=== PATIENT | male | born 1975 | race Caucasian/White ===

== ENCOUNTER 2017-03-22 19:18 | Emergency (ER) | payer OTHER ==
[2017-03-22] MEDS ORDERED: Nitroglycerin 0.4 MG TAB (25 Tab Bottle) ONE (19:38)
[2017-03-22 20:16] LABS: #Basophils 0.1 thou/uL (0.0-0.2); #Eosinphils 0.1 thou/uL (0.0-0.7); #Lymphocytes 2.5 thou/uL (1.20-3.40); #Neutrophils 6.8 thou/uL (1.40-6.50); %Basophils 0.8 % (0.0-1.0); %Eosinophils 0.9 % (0.0-10.0); %Lymphocytes 23.6 % (21.0-51.0); %Monocytes 9.4 % (0.0-10.0); Hematocrit 50.9 % (42.0-52.0); Red Blood Cell (RBC) Count 5.48 mill/uL (4.70-6.10); White Blood Cell (WBC) Count 10.4 thou/uL (4.8-10.8)
[2017-03-22 20:25] LABS: PTT 25.2 SEC (22.9-36.1); Prothrombin Time 13.5 SEC (12.0-14.7)
[2017-03-22] MEDS ORDERED: Ondansetron ODT 8 MG TAB ONE (20:25)
[2017-03-22 20:40] LABS: ALT (SGPT) 22 U/L (8-55); AST (SGOT) 17 U/L (5-34); Alkaline Phosphatase 75 U/L (40-150); Anion Gap 13 mmol/L (10-20); BUN (Urea Nitrogen) 10 mg/dL (8.9-20.6); Bilirubin, Total 0.4 mg/dL (0.2-1.2); Calc. Creatinine Clearance 0 mL/min (70-130); Calcium 9.6 mg/dL (7.8-10.44); Carbon Dioxide 23 mmol/L (22-29); Chloride 105 mmol/L (98-107); Estimated GFR-MDRD 67; Globulin 3.1 g/dL (2.4-3.5); Lipase 20 U/L (8-78); Protein, Total 7.2 g/dL (6.0-8.3)
[2017-03-22 20:45] LABS: Troponin I Less than 0.010 ng/mL (< 0.028)
--- NOTE | 2017-03-22 22:15 | RAD ---
PA AND LATERAL CHEST: Indication: Nausea with light headedness. Chest pain. Comparison: Single view of the chest, 610. IMPRESSION: No acute cardiopulmonary abnormality. COMMENTS: No airspace consolidation or pleural effusion is evident. There is multilevel spondylosis of the tho racic spine. Heart and pulmonary vasculature are within normal limits. POS: [facility] [place]
[2017-03-22 23:44] LABS: Troponin I 0.022 ng/mL (< 0.028)
--- NOTE | 2017-03-27 18:25 | EKG ---
Test Reason : Blood Pressure : / mmHG Vent. Rate : 091 BPM Atrial Rate : 091 BPM P-R Int : 134 ms QRS Dur : 084 ms QT Int : 336 ms P-R-T Axes : 059 064 060 degrees QTc Int : 413 ms Normal sinus rhythm Normal ECG Confirmed by ESTEPHANIA Guzmán, HEIDE Basilio ([id number]), editor in chief ERIKA SUN ([id number]) on 03/27/2017 6:25:14 PM Referred By: Confirmed By:HEIDE BEST M.D.
--- NOTE | 2017-03-27 18:27 | EKG ---
Test Reason : Blood Pressure : / mmHG Vent. Rate : 076 BPM Atrial Rate : 076 BPM P-R Int : 136 ms QRS Dur : 090 ms QT Int : 374 ms P-R-T Axes : 048 062 068 degrees QTc Int : 420 ms Normal sinus rhythm Normal ECG Confirmed by ESTEPHANIA Guzmán, HEIDE Basilio ([id number]), newspaper or periodical editor ERIKA SUN ([id number]) on 03/27/2017 6:26:45 PM Referred By: Confirmed By:HEIDE BEST M.D.
== END 2017-03-23 00:07 | disposition home or self-care (01) ==
LOC: ERS 19:18
DX: R07.89 Other chest pain (principal); I10 Essential (primary) hypertension; I25.2 Old myocardial infarction; I25.10 Atherosclerotic heart disease of native coronary artery without angina pectoris; F17.210 Nicotine dependence, cigarettes, uncomplicated; Z79.82 Long term (current) use of aspirin; Z79.899 Other long term (current) drug therapy
CPT/HCPCS: 36415; 71020; 80053; 82553; 83690; 83735; 83880; 84484; 85025; 85379; 85610; 85730; 93005; J7620

== ENCOUNTER 2020-03-23 20:42 | Emergency (ER) | payer BC, SELFPAY ==
[2020-03-23 21:36] LABS: #Basophils 0.1 thou/uL (0.0-0.2); #Eosinphils 0.3 thou/uL (0.0-0.7); #Monocytes 1.2 thou/uL (0.11-0.59); %Basophils 0.7 % (0.0-1.0); %Eosinophils 2.9 % (0.0-10.0); %Lymphocytes 42.3 % (21.0-51.0); %Monocytes 12.5 % (0.0-10.0); %Neutrophils 41.5 % (42.0-75.0); Hemoglobin 17.6 g/dL (14.0-18.0); Mean Corpuscular HGB CONC 34.6 g/dL (32.0-36.0); Mean Corpuscular Hemoglobin 31.9 pg (27.0-31.0); Mean Corpuscular Volume 92.2 fL (78.0-98.0); Mean Platelet Volume 7.2 fL (7.4-10.4); Platelet Count 216 thou/uL (130-400); Red Blood Cell (RBC) Count 5.51 mill/uL (4.70-6.10); White Blood Cell (WBC) Count 9.5 thou/uL (4.8-10.8)
--- NOTE | 2020-03-23 21:36 | CT ---
CT OF THE ABDOMEN AND PELVIS WITHOUT IV CONTRAST INDICATION: Right flank pain and back pain COMPARISON: CT the abdomen and pelvis with contrast dated October 26, 2018 FINDINGS: The lack of IV contrast limits evaluation of the solid organs of the abdomen and pelvis. ABDOMEN: Lung bases: Clear Liver: No focal lesion. Gallbladder: Normal appearing. Pancreas: Normal. Adrenal glands: Normal. Spleen: Normal. Kidneys and ureters: Normal. No hydronephrosis. Vasculature: There are mild vascular calcifications seen involving the visualized vasculature. Lymph nodes:No lymphadenopathy. Free fluid in abdomen:No free fluid is evident. PELVIS: Small and large bowel: There is a mild amount retained stool within the colon. The small bowel is nor mal in caliber. Appendix:Normal Bladder: Partially decompressed Rectal and perirectal soft tissues:Normal. Reproductive structures: Normal. Free fluid in pelvis: No free fluid is evident. Lymphadenopathy pelvis: No lymphadenopathy is evident. Osseous structures: No acute osseous abnormality. No destructive osteolytic or osteoblastic lesion i s identified. There is scattered degenerative and osteoarthritic changes. Soft tissues:Normal. IMPRESSION: 1. No acute abnormality.
[2020-03-23] MEDS ORDERED: Ondansetron PF 4 MG/2 ML Vial ONE (21:39)
[2020-03-23] MEDS ORDERED: Morphine 4 MG/ML VIAL ONE (21:39)
[2020-03-23 21:50] LABS: Bilirubin Negative (Negative); Blood, Urine Negative (Negative); Clarity Clear (Clear); Glucose, Urine (Dipstick) Normal (Negative); Ketone, Urine Negative (Negative); Leukocyte Negative Leu/uL (Negative); Nitrite Negative (Negative); Protein, Urine (Dipstick) Negative (Neg-Trace); Specific Gravity, Urine 1.015 (1.002-1.036); Urobilinogen Normal mg/dL (Less than 2); pH, Urine 5.5 (5.0-9.0)
[2020-03-23 21:54] LABS: ALT (SGPT) 30 U/L (8-55); AST (SGOT) 22 U/L (5-34); Albumin 3.9 g/dL (3.5-5.0); Alkaline Phosphatase 73 U/L (40-110); Anion Gap 14 mmol/L (10-20); BUN (Urea Nitrogen) 11 mg/dL (8.9-20.6); Bilirubin, Total 0.2 mg/dL (0.2-1.2); Calc. Creatinine Clearance 0 mL/min (70-130); Calcium 9.3 mg/dL (7.8-10.44); Carbon Dioxide 22 mmol/L (22-29); Chloride 106 mmol/L (98-107); Estimated GFR-MDRD 70; Globulin 3.4 g/dL (2.4-3.5); Glucose 74 mg/dL (70-105); Lipase 32 U/L (8-78); Potassium 4.3 mmol/L (3.5-5.1); Protein, Total 7.3 g/dL (6.0-8.3); Sodium 138 mmol/L (136-145)
[2020-03-23] MEDS ORDERED: Ketorolac Tromethamine 30 MG/ML VIAL ONE (23:05)
== END 2020-03-23 23:12 | disposition home or self-care (01) ==
LOC: ERS 20:42
DX: S39.012A Strain of muscle, fascia and tendon of lower back, initial encounter (principal); I10 Essential (primary) hypertension; E78.00 Pure hypercholesterolemia, unspecified; I25.2 Old myocardial infarction; F17.210 Nicotine dependence, cigarettes, uncomplicated; Z79.899 Other long term (current) drug therapy; Z79.82 Long term (current) use of aspirin; X58.XXXA Exposure to other specified factors, initial encounter
CPT/HCPCS: 74176; 80053; 81003; 83690; 85025; 87086; 96374; 96375; J1885; J2270; J2405

== ENCOUNTER 2020-03-28 17:05 | Observation (INO) | payer SELFPAY ==
[~2020-03-28 17:05] MED LIST: Iopamidol-370 76% 500 ML 1 ML ONE
[2020-03-28 17:29] LABS: #Basophils 0.1 thou/uL (0.0-0.2); #Monocytes 1.1 thou/uL (0.11-0.59); #Neutrophils 13.2 thou/uL (1.40-6.50); %Basophils 0.6 % (0.0-1.0); %Eosinophils 0.1 % (0.0-10.0); %Lymphocytes 11.9 % (21.0-51.0); %Monocytes 6.9 % (0.0-10.0); %Neutrophils 80.5 % (42.0-75.0); Mean Corpuscular HGB CONC 34.3 g/dL (32.0-36.0); Mean Corpuscular Volume 93.3 fL (78.0-98.0); Mean Platelet Volume 6.8 fL (7.4-10.4); Platelet Count 273 thou/uL (130-400); RBC Distribution Width 12.1 % (11.5-14.5); Red Blood Cell (RBC) Count 5.63 mill/uL (4.70-6.10); White Blood Cell (WBC) Count 16.4 thou/uL (4.8-10.8)
[2020-03-28 18:14] LABS: CKMB 1.3 ng/mL (0-6.6)
[2020-03-28 18:21] LABS: ALT (SGPT) 48 U/L (8-55); AST (SGOT) 22 U/L (5-34); Albumin 4.2 g/dL (3.5-5.0); Alkaline Phosphatase 81 U/L (40-110); Anion Gap 16 mmol/L (10-20); BUN (Urea Nitrogen) 15 mg/dL (8.9-20.6); Bilirubin, Total 0.3 mg/dL (0.2-1.2); Calc. Creatinine Clearance 0 mL/min (70-130); Calcium 9.3 mg/dL (7.8-10.44); Carbon Dioxide 18 mmol/L (22-29); Chloride 106 mmol/L (98-107); Estimated GFR-MDRD 62; Globulin 3.1 g/dL (2.4-3.5); Glucose 235 mg/dL (70-105); Potassium 3.8 mmol/L (3.5-5.1); Protein, Total 7.3 g/dL (6.0-8.3); Sodium 136 mmol/L (136-145)
--- NOTE | 2020-03-28 18:37 | RAD ---
PORTABLE UPRIGHT FRONTAL CHEST RADIOGRAPH: 03/28/20 COMPARISON: 03/22/17. HISTORY: Chest pain. FINDINGS: The lungs appear clear. Heart and mediastinal contours are unremarkable. IMPRESSION: No acute findings. POS: [facility]
[2020-03-28 19:19] LABS: Bilirubin Negative (Negative); Blood, Urine Negative (Negative); Clarity Clear (Clear); Glucose, Urine (Dipstick) 250 mg/dL (Negative); Ketone, Urine Negative (Negative); Leukocyte Negative (Negative); Nitrite Negative (Negative); Protein, Urine (Dipstick) Negative (Neg-Trace); Urobilinogen 0.2 mg/dL (Less than 2); pH, Urine 6.5 (5.0-9.0)
[2020-03-28 19:20] LABS: Specific Gravity, Urine 1.007 (1.002-1.036)
--- NOTE | 2020-03-28 19:52 | CT ---
CT OF THE HEAD WITHOUT CONTRAST: 03/28/20 COMPARISON: None. HISTORY: Dizziness. TECHNIQUE: Axial CT imaging is obtained at 5 mm intervals from vertex through skull baes without contrast. FINDINGS: The imaged paranasal sinuses and mastoid air cells appear well aerated. No displaced calvarial fractu re, intracranial hemorrhage, midline shift or mass effect. The lateral ventricles are mildly prominent and demonstrate a slightly wavy configuration, significan ce/etiology uncertain. IMPRESSION: No intracranial hemorrhage. No acute findings are seen. Incidental findings as detailed above. POS: [facility]
[2020-03-28] MEDS ORDERED: Meclizine HCl 25 MG TAB ONE (20:13)
[2020-03-28] MEDS ORDERED: Lorazepam 2 MG/ML VIAL ONE (20:13)
--- NOTE | 2020-03-28 20:18 | CT ---
CT ANGIOGRAM OF THE CHEST AND ABDOMEN 03/28/20 COMPARISON: None. HISTORY: Dizziness with palpitations and hypertension. TECHNIQUE: Axial CT imaging is obtained at 2.5 mm intervals from the thoracic inlet through the aortic bifurcati on with IV contrast using CT angiogram protocol. Coronal and sagittal 3D reformatted imaging obtained . FINDINGS: No axillary, mediastinal, or hilar lymphadenopathy is noted. There is no evidence for aneurysm or dis section involving the thoracic or the abdominal aorta. There is no pneumothorax seen on either side. There are mild subpleural emphysematous changes seen within bilateral lung apices. There is no discr ete/dominant pulmonary parenchymal mass lesion or nodule noted within the lung parenchyma. No discret e endobronchial lesion is evident. Osseous structures of the chest demonstrate no acute findings. Osseous structures of the abdomen demonstrate no acute findings. The liver, gallbladder, spleen, panc reas, adrenal glands, and kidneys demonstrate no acute findings. The partially imaged bowel appears grossly unremarkable. The celiac access, superior mesenteric artery, bilateral renal arteries and inferior mesenteric arter y are patent. There is mild atherosclerotic calcification involving the bilateral common iliac arteri es and the distal aspect of the abdominal aorta. Two patent renal arteries are present on the right. IMPRESSION: No evidence for aneurysm or dissection of the thoracic or abdominal aorta. POS: [facility]
[2020-03-28] MEDS ORDERED: Aspirin 325 MG TAB ONE (20:43)
[2020-03-28] MEDS ORDERED: diphenhydrAMINE 25 MG in Sodium Chloride 0.9% 50 ML IVPB SCH (22:15)
[2020-03-28] MEDS ORDERED: HYDROcodone/Acetaminophen 5/325 mg Tablet PO PRN (22:17)
[2020-03-28 22:51] LABS: Troponin I 0.017 ng/mL (< 0.028)
[2020-03-28 23:09] LABS: Lactic Acid 1.9 mmol/L (0.5-2.2)
[2020-03-28] MEDS ORDERED: diphenhydrAMINE 50 MG/ML VIAL IVP SCH (23:15)
[2020-03-28] MEDS ORDERED: diphenhydrAMINE 50 MG/ML VIAL ONE (23:16)
--- NOTE | 2020-03-29 01:58 | HP ---
REASON FOR ADMISSION: Dizziness. HISTORY OF PRESENT ILLNESS: This is a 45-year-old male patient who is presenting with dizziness, history going back to 5 days before his presentation. He has been having difficulty with ambulation. He feels that he will lose his balance. He has to hold onto things while walking, even going to the bathroom is difficult for him. He says that it is lightheadedness sensation, but he denies feeling that he will lose consciousness. He denies feeling of spinning like sensation. Denies any pressure in his ears and no decrease in hearing. He has not been able to go to work due to that spinning sensation. He denies any vision changes. No weakness in his upper or lower extremities. The patient was recently seen in our emergency room 6 days ago for back pain that has since then somewhat improved. He was prescribed steroids and he did fill his prescription, although he did not take his pain medication. He did take the steroids. In the emergency room, he was noted to be flushed around his upper chest area and back and face. He denies being exposed to sun. Denies itching. This occurred before he received IV contrast for the CAT scan or any medication that was given today. PAST MEDICAL HISTORY: 1. Coronary artery disease, status post AK in 2016. 2. High blood pressure. 3. High cholesterol. SOCIAL HISTORY: He occasionally drink. He does smoke a pack and a half to two packs a day. He does not have any drug allergy. FAMILY HISTORY: His father was diabetic. REVIEW OF SYSTEMS: All systems reviewed except the above mentioned, found to be negative. PHYSICAL EXAMINATION: GENERAL: Awake, alert, oriented, does not appear in distress. VITAL SIGNS: His blood pressure is 130/70, heart rate of 70. HEENT: Head is nontraumatic, normocephalic. Pupils are equal, reactive. Extraocular movements are intact. Nonicteric sclerae. Well injected conjunctivae. Oral mucosa normal. Nasal mucosa normal. NECK: Supple. No adenopathy. No murmur. Thyroid is not palpable. Trachea is midline. No supraclavicular adenopathy. CARDIOVASCULAR: S1 and S2 regular. No murmurs. No gallops. No friction rubs. No displacement of PMI. LUNGS: Clear to auscultation bilaterally. No wheezes, rhonchi, or crackles. ABDOMEN: Bowel sounds are positive. Nontender abdomen. No hepatosplenomegaly. EXTREMITIES: No lower extremity edema. No cyanosis. NEUROLOGIC: Cranial nerves 2 through 12 within normal limits. Normal motor function. Normal sensory function reflexes. No dysmetria. LABORATORY DATA: Blood work shows WBC of 16.4, hemoglobin 18, and platelets of 273. Neutrophil count 83.5%. Sodium of 136, potassium 3.8, bicarb of 18, and glucose 235. Troponin initially 0.029. Urinalysis shows glucose of 250. IMAGING DATA: CT dissection shows no evidence of aneurysmal dissection involving the thoracic or the abdominal aorta. No pneumothorax seen on either side. There are mild subpleural emphysematous changes seen within bilateral lung apices. There is no discrete/dominant pulmonary parenchymal mass lesion or nodule noted within the lung parenchyma. No discrete endobronchial lesion is evident. Osseous structure of the chest demonstrates no acute finding. Osseous structures in the abdomen demonstrates no acute finding. Liver, gallbladder, spleen, pancreas, and adrenal gland and kidneys demonstrate no acute finding. Partially imaged bowel appears grossly unremarkable. Celiac axis, superior mesenteric artery, bilateral renal arteries and inferior mesenteric artery are patent. Mild atherosclerotic calcification involving the bilateral common iliac arteries and distal aspect of the abdominal aorta. Two patent renal arteries are present on the right. IMPRESSION: No evidence of aneurysmal dissection of the thoracic or abdominal aorta. CT of the brain shows no intracranial hemorrhage. EKG shows sinus tachycardia per my read. ASSESSMENT AND PLAN: This is a 45-year-old male patient presenting with dizziness, we should rule out central etiology. Neuro: The patient to be admitted with frequent neuro checks. In the morning, he will have an MRI of the brain and MRA of the neck and echocardiogram. We will practice permissive hypertension. He will be maintained on aspirin. For DVT prophylaxis, he has been on Lovenox and SCDs. Cardiac: The patient does have abnormal troponin. We will recycle his troponins. He denies any chest pain. The patient does have redness involving his chest and back, could be due to allergic reaction to the leads. Since he did mention that he has allergy to leads in the past when he had the Holter monitor done. He did develop itching after having leads stuck on his chest. We will attempt to remove the leads and we will give him Benadryl. His blood work does show elevated glycemic levels and most likely induced by steroids. We will recheck his labs in the morning and monitor his glucose and see if it normalizes in a.m. Job ID: [id number]
[2020-03-29 02:07] VITALS: BMI 30.1
[2020-03-29 07:11] LABS: Hemoglobin 15.9 g/dL (14.0-18.0); Mean Corpuscular HGB CONC 33.3 g/dL (32.0-36.0); Mean Corpuscular Hemoglobin 32.1 pg (27.0-31.0); Mean Corpuscular Volume 96.6 fL (78.0-98.0); Mean Platelet Volume 7.2 fL (7.4-10.4); Platelet Count 216 thou/uL (130-400); RBC Distribution Width 12.3 % (11.5-14.5); Red Blood Cell (RBC) Count 4.95 mill/uL (4.70-6.10); White Blood Cell (WBC) Count 16.9 thou/uL (4.8-10.8)
[2020-03-29 07:18] LABS: Anion Gap 13 mmol/L (10-20); BUN (Urea Nitrogen) 15 mg/dL (8.9-20.6); Calc. Creatinine Clearance 91 mL/min (70-130); Calcium 9.1 mg/dL (7.8-10.44); Carbon Dioxide 28 mmol/L (22-29); Chloride 109 mmol/L (98-107); Cholesterol 187 mg/dl (< 200 Desired); Estimated GFR-MDRD 62; Glucose 83 mg/dL (70-105); HDL Cholesterol 31 mg/dL (>60 Neg Risk); LDL Cholesterol, Calculated 120 mg/dL; Potassium 5.1 mmol/L (3.5-5.1); Sodium 145 mmol/L (136-145); Triglycerides 179 mg/dL (Less than 150)
[2020-03-29] MEDS: Aspirin 325 mg Enteric Coated Tablet PO SCH (08:17)
[2020-03-29] MEDS: Enoxaparin Sodium 40 MG/0.4 ML SYRINGE SC SCH (08:17)
[2020-03-29] MEDS ORDERED: Diazepam 5 MG TAB PO PRN (08:26)
--- NOTE | 2020-03-29 08:29 | PDOC.HOSPP ---
- Subjective Encounter Date: 03/29/20 Encounter Time: 10:00 Subjective: Patient with persistent lightheadedness, no current chest pains. Symptoms worse with sitting/standing up. Has been going on for 1 week, not changing. MRI done this AM. - Objective Vital Signs & Weight: Vital Signs (12 hours) Temp Pulse Resp BP BP Pulse Ox 03/29/20 07:22 97.6 F 73 18 142/89 H 94 L 03/29/20 04:00 97.6 F 71 18 129/80 94 L 03/29/20 02:15 98.1 F 77 18 131/77 94 L 03/29/20 01:30 98.1 F 77 17 131/77 94 L Weight Weight 192 lb 4.8 oz Result Diagrams: 03/29/20 06:11 03/29/20 06:11 Hospitalist ROS - Review of Systems Constitutional: denies: fever, chills Respiratory: denies: cough, shortness of breath Cardiovascular: denies: chest pain, palpitations Gastrointestinal: reports: nausea. denies: vomiting, abdominal pain - Medication Medications: Active Medications Generic Name Dose Route Start Last Admin Trade Name Freq PRN Reason Stop Dose Admin Aspirin 325 mg 03/29/20 09:00 03/29/20 08:17 Aspirin 325 Mg Enteric Coated Tablet PO 325 mg DAILY YAQUELIN Administration Enoxaparin Sodium 40 mg 03/29/20 09:00 03/29/20 08:17 Enoxaparin Sodium 40 Mg/0.4 Ml Syringe SC 40 mg 0900 YAQUELIN Administration - Exam General Appearance: NAD, awake alert ENT: moist mucosa Heart: RRR, no murmur, no gallops, no rubs Respiratory: CTAB, no wheezes, no rales, no ronchi Gastrointestinal: soft, non-tender, non-distended, normal bowel sounds Psychiatric: normal affect, normal behavior, A&O x 3 Hosp A/P (1) Dizziness Code(s): R42 - DIZZINESS AND GIDDINESS Status: Acute (2) CAD (coronary artery disease) Code(s): I25.10 - ATHSCL HEART DISEASE OF [place] CORONARY ARTERY W/O ANG PCTRS Status: Chronic (3) HTN (hypertension) Code(s): I10 - ESSENTIAL (PRIMARY) HYPERTENSION Status: Chronic (4) HLD (hyperlipidemia) Code(s): E78.5 - HYPERLIPIDEMIA, UNSPECIFIED Status: Chronic - Plan Patient with new onset dizziness and unsteadiness. Awaiting MRI read and Neuro consult. Check orthostatics. If MRI neg, suspect may be cardiac in origin. Patient did have mildly indeterminate troponin and tachycardia on admit. History of previous heart attack. Will transfer patient to telemetry. Consult Cardiology.
[2020-03-29 08:37] LABS: Eosinophils 1 % (0-10); Lymphocytes 41 % (21-51); MDiff Complete? YES; Monocytes 6 % (0-10); Neutrophil 52 % (42-75); Platelet Morphology Comment Appears Adequate; RBC Morphology Normal
[2020-03-29] MEDS: buPROPion 75 MG TAB PO SCH (09:28)
--- NOTE | 2020-03-29 10:23 | MRI ---
BRAIN MRI WITHOUT CONTRAST: Date: 03/29/2020 COMPARISON: None. HISTORY: Weakness, history of heart attack, evaluate for stroke. TECHNIQUE: Multiplanar, multisequence MR imaging of the brain is obtained without contrast. FINDINGS: The diffusion-weighted imaging demonstrates no evidence for acute infarction. The axial gradient echo imaging demonstrates no evidence for intracranial hemorrhage. There is polypoid mucosal thickening involving the inferior aspect of the left maxillary sinus. Visua lized paranasal sinuses and mastoid air cells are otherwise unremarkable. Arterial flow-voids at the axial level of the skull base appear grossly unremarkable on the T2-weighted imaging. There is no midline shift or mass effect, and no ventricular enlargement. Regional bone marrow signal intensity appears within normal limits. IMPRESSION: No acute findings. POS: [facility]
--- NOTE | 2020-03-29 11:05 | MRI ---
MR ANGIOGRAM OF THE NECK: Date: 03/29/2020 HISTORY: Generalized weakness, prior heart attack. TECHNIQUE: [id number] and postcontrast MR angiography of the neck is provided. FINDINGS: The [id number] imaging demonstrates antegrade blood flow within the carotid and the vertebral sys tem bilaterally. The origin of the innominate artery, left common carotid artery, and left subclavian artery are paten t. A bovine arch is noted. The origin of the vertebral artery appears unremarkable bilaterally. Bilat eral vertebral arteries appear unremarkable. On the basis of NASCET criteria, there is no hemodynamically significant stenosis seen involving the internal carotid artery or the common carotid artery on either side. Portions of the distalmost vertebral arteries are not optimally assessed on the postcontrast imaging or [id number] imaging secondary to tortuosity and field of view. The intracranial arterial structures are not optimally assessed on this examination secondary to fiel d of view. IMPRESSION: Grossly unremarkable MR angiography of the neck as detailed above. POS: [facility]
--- NOTE | 2020-03-29 13:28 | CON ---
NEUROLOGY CONSULTATION DATE OF CONSULTATION: 03/29/2020 REASON FOR CONSULTATION: Dizziness, rule out posterior circulation stroke. HISTORY OF PRESENT ILLNESS: Mr. Boyer is a 45-year-old male with medical history significant for coronary artery disease, status post myocardial infarction in 2016, hypertension, hypercholesteremia, presented to the hospital with persistent dizziness for the last 5 days prior to admission to the hospital. The patient has been extremely unsteady on feet and it was difficult to walk. He has to hold onto things, even when going to the restroom. The patient had lightheaded sensation, but denies a presyncopal feeling. He denies room spinning in front of his eyes or pressure in the ear or earache or problems with hearing. The patient denies any focal weakness or focal paresthesias. He does have nausea, but denies headache, chest pain, abdominal pain, blurred vision, double vision, or loss of consciousness, or abnormal involuntary movement associated with dizziness. He denies any recent sick contacts or exposure to COVID. The patient was recently seen in the emergency room 6 weeks ago because of back pain, which is now improved. He is taking steroids for pain. In the emergency room, he noticed his skin is flushed around his upper chest area, back, and the face. The patient denies any pain or itching. REVIEW OF SYSTEMS: All systems reviewed and were negative except the pertinent positives and negatives mentioned in the HPI. PAST MEDICAL HISTORY: Coronary artery disease, status post myocardial infarction in 2016, hypertension, hypercholesterolemia. SOCIAL HISTORY: The patient occasionally drinks. He smokes a pack a day and he denies illegal drug use. ALLERGIES: NO KNOWN DRUG ALLERGIES. FAMILY HISTORY: Significant for diabetes. Vital Signs & Weight: Vital Signs (12 hours) Temp Pulse Resp BP BP Pulse Ox 03/29/20 07:22 97.6 F 73 18 142/89 H 94 L 03/29/20 04:00 97.6 F 71 18 129/80 94 L 03/29/20 02:15 98.1 F 77 18 131/77 94 L 03/29/20 01:30 98.1 F 77 17 131/77 94 L Active Medications Generic Name Dose Route Start Last Admin Trade Name Freq PRN Reason Stop Dose Admin Aspirin 325 mg 03/29/20 09:00 03/29/20 08:17 Aspirin 325 Mg Enteric Coated Tablet PO 325 mg DAILY YAQUELIN Administration Enoxaparin Sodium 40 mg 03/29/20 09:00 03/29/20 08:17 Enoxaparin Sodium 40 Mg/0.4 Ml Syringe SC 40 mg 0900 YAQUELIN Administration PHYSICAL EXAMINATION: VITAL SIGNS: Blood pressure 138/90, heart rate 70, and respiratory rate 16. GENERAL: Alert and awake male, in mild distress. HEAD: Atraumatic. NECK: Supple. CVS: Regular rate and rhythm. CHEST: Clear. ABDOMEN: Soft. EXTREMITIES: No clubbing, cyanosis, or edema. NEUROLOGIC: Mental status, the patient is alert and oriented to person, place, and time. Recent and remote memory, intact. Speech is clear. Cranial nerves 2 through 12 are intact. No gaze preference or nystagmus. Motor, muscle tone and bulk are normal. Strength 5/5 bilaterally. Sensory, intact. Cerebellar, finger-nose testing intact. Gait deferred due to the patient's safety reasons. DATA REVIEWED: I reviewed the labs and imaging data. CT dissection showed no evidence of aneurysm involving the thoracic or abdominal aorta. MRI of the brain reviewed, which was negative for acute intracranial pathology. MRA of the neck did not reveal any hemodynamically significant stenosis or aneurysm. EKG showed normal sinus rhythm. ASSESSMENT AND PLAN: (1) Dizziness Code(s): R42 - DIZZINESS AND GIDDINESS Status: Acute (2) CAD (coronary artery disease) Code(s): I25.10 - ATHSCL HEART DISEASE OF [place] CORONARY ARTERY W/O ANG PCTRS Status: Chronic (3) HTN (hypertension) Code(s): I10 - ESSENTIAL (PRIMARY) HYPERTENSION Status: Chronic (4) HLD (hyperlipidemia) Mr. Boyer is a 45-year-old male, presented with dizziness. Neurology was consulted to rule out acute intracranial pathology. MRI of the brain reviewed, which was negative for acute intracranial pathology. MRA of neck did not reveal any aneurysm or hemodynamically significant stenosis. Strict control of blood pressure and blood glucose. 2D echo to evaluate for left ventricular ejection fraction. Consider Cardiology workup per primary team and Cardiology. The patient unlikely to have acute intracranial event since the symptoms are persistent for the last 5 days, and MRI of the brain is negative and there is no hemodynamically significant stenosis on MRA of the neck. We will continue home medications. Continue medical management per primary team. DVT prophylaxis. Thank you for the consult. Job ID: [id number] [facility]
[2020-03-29] MEDS ORDERED: Magnevist 469MG/ML 20 ML VIAL ONE (14:18)
[2020-03-29] MEDS ORDERED: Meclizine HCl 25 MG TAB PO SCH (17:00)
[2020-03-29 17:03] LABS: Hemoglobin A1c 5.5 % (4.0-6.0)
[2020-03-29 17:40] LABS: SARS-CoV-2 MS2 Positive; SARS-CoV-2 N Gene Negative; SARS-CoV-2 S Gene Negative; SARS-CoV-2 by NAA Not Detected (NotDetected); SARS-CoV-2 orf1ab Negative
[2020-03-29 18:12] LABS: Amphetamine Not Detected (NotDetected); Barbiturates Screen Not Detected (NotDetected); Benzodiazepine Screen Detected (NotDetected); Cocaine Metabolite Screen Not Detected (NotDetected); Medtox Control Line Valid? VALID (VALID); Medtox Reader # READER 4; Methadone Not Detected (NotDetected); Methamphetamine Not Detected (NotDetected); Opiate Screen Not Detected (NotDetected); Oxycodone Screen Not Detected (NotDetected); Phencyclidine (PCP) Not Detected (NotDetected); THC/Cannabinoid Screen Not Detected (NotDetected); Tricyclic Screen Not Detected (NotDetected)
[2020-03-29] MEDS ORDERED: Atorvastatin Calcium 40 MG TAB PO SCH (21:00)
[2020-03-29] MEDS: Meclizine HCl 25 MG TAB PO SCH (21:09)
--- NOTE | 2020-03-29 22:02 | CON ---
DATE OF CONSULTATION: HISTORY OF PRESENT ILLNESS: Mario Alberto Boyer is a 45-year-old white male admitted with dizziness. He states that three or four years ago, he was hospitalized and was told that he had a heart attack. He underwentcardiac catheterization and had a 40% narrowing in one artery and a 10% narrowing in another. He has been on cholesterol medicine since that time. He denies any chest discomfort or shortness of breath. He was seen in the office in [address] Diallo Sood and exercised 9 minutes on treadmill and this was negative for ischemia. He now presents complaining of five days of dizziness and lightheadedness. He denies any fever. He notices that this is worse when he stands. Although if he is in bed and rolls over in bed or if he turns his head from side to side while in bed, he will get thew same symptoms. He has undergone neurological evaluation and nothing specific has been found. PAST MEDICAL HISTORY: Questionable myocardial infarction with the anatomy that he describes, hypercholesterolemia, and high blood pressure. MEDICATIONS: 1. Aspirin 81 mg every other day. 2. Atorvastatin 80 daily. 3. Valium q.8 hours p.r.n. 4. Toradol p.r.n. 5. Omeprazole daily. 6. Wellbutrin daily. 7. He apparently is not on any antihypertensives. ALLERGIES: NONE. SOCIAL HISTORY: He continues to smoke 1-1/2-2 packs per day. He occasionally drinks. FAMILY HISTORY: Negative for coronary artery disease. PHYSICAL EXAMINATION: VITAL SIGNS: Blood pressure 147/90, pulse of 86. HEENT: PERRL. NECK: Supple. CHEST: Clear. CARDIAC: S1 and S2 normal without any S3, S4, or murmurs. Carotid upstrokes normal without bruits. ABDOMEN: Normal bowel sounds. EXTREMITIES: Revealed no clubbing, cyanosis, or edema. NEUROLOGIC: Grossly intact. With turning his head from side to side, this seems to bring on his dizziness while he is supine in bed. LABORATORY DATA: EKG reveals sinus tachycardia with rate of 110 per minute, otherwise unremarkable EKG. Glucose is up to 235 at the time of admission. Sodium 145, potassium 5.1, chloride 109, carbon dioxide 28, BUN 15, creatinine 1.24, cholesterol 187, triglycerides 179, LDL 120, HDL 31. Troponin I is 0.029. White count 16.9, hemoglobin 15.9, hematocrit 47.8, platelets 216,000. Echocardiogram revealed ejection fraction of 50% to 55% with mild mitral regurgitation and mild tricuspid regurgitation. IMPRESSION: 1. Dizziness. This seems to be reproduced with rolling over in bed or turning his head from side to side while he is supine in bed. Some of the symptoms are worse if he does stand. Historically, this sounds most consistent with acute labyrinthitis, although he does not have any nausea associated with this. 2. Questionable myocardial infarction with the anatomy that he describes above. He does have some coronary artery disease, but it does not sound as if that degree of stenosis would have led to a myocardial infarction. 3. Hypertension. Although, he is not on any medications currently. 4. Hypercholesterolemia, poorly controlled. 5. Smoker. PLAN: Orthostatic blood pressures will be performed. Also, he will be started on a trial of meclizine 25 mg t.i.d. I do not feel that his dizziness is cardiac related in anyway. Also, he has a significantly elevated glucose, hemoglobin A1c will be obtained. Urine drug screen will be obtained. Job ID: [id number] [facility]
[2020-03-30 04:16] LABS: #Basophils 0.1 thou/uL (0.0-0.2); #Eosinphils 0.2 thou/uL (0.0-0.7); #Lymphocytes 4.9 thou/uL (1.20-3.40); #Monocytes 1.2 thou/uL (0.11-0.59); #Neutrophils 7.1 thou/uL (1.40-6.50); %Basophils 0.9 % (0.0-1.0); %Eosinophils 1.5 % (0.0-10.0); %Lymphocytes 36.1 % (21.0-51.0); %Monocytes 8.7 % (0.0-10.0); %Neutrophils 52.8 % (42.0-75.0); Hemoglobin 16.9 g/dL (14.0-18.0); Mean Corpuscular HGB CONC 34.4 g/dL (32.0-36.0); Mean Corpuscular Hemoglobin 32.3 pg (27.0-31.0); Mean Corpuscular Volume 93.8 fL (78.0-98.0); Mean Platelet Volume 7.3 fL (7.4-10.4); Platelet Count 210 thou/uL (130-400); RBC Distribution Width 12.2 % (11.5-14.5); Red Blood Cell (RBC) Count 5.24 mill/uL (4.70-6.10); White Blood Cell (WBC) Count 13.5 thou/uL (4.8-10.8)
[2020-03-30 04:39] LABS: Anion Gap 15 mmol/L (10-20); BUN (Urea Nitrogen) 17 mg/dL (8.9-20.6); Calc. Creatinine Clearance 103 mL/min (70-130); Calcium 8.8 mg/dL (7.8-10.44); Carbon Dioxide 21 mmol/L (22-29); Chloride 106 mmol/L (98-107); Estimated GFR-MDRD 76; Glucose 88 mg/dL (70-105); Sodium 138 mmol/L (136-145)
[2020-03-30 04:44] LABS: Troponin I Less than 0.010 ng/mL (< 0.028)
[2020-03-30] MEDS: Meclizine HCl 25 MG TAB PO SCH ×2 (06:02→13:31)
--- NOTE | 2020-03-30 07:51 | PDOC.HOSPP ---
- Subjective Encounter Date: 03/30/20 Encounter Time: 10:00 Subjective: Patient with decreased dizziness on starting the meclizine. No chest pain or other complaints. - Objective Vital Signs & Weight: Vital Signs (12 hours) Temp Pulse Resp BP BP Pulse Ox 03/30/20 04:00 97.6 F 80 14 143/86 H 144/94 H 95 Weight Weight 184 lb 1.6 oz I&O: 03/29/20 03/30/20 03/31/20 06:59 06:59 06:59 Intake Total 960 Output Total 2125 Balance -1165 Result Diagrams: 03/30/20 04:07 03/30/20 04:07 Hospitalist ROS - Review of Systems Constitutional: denies: fever, chills Respiratory: denies: cough, shortness of breath Cardiovascular: denies: chest pain, palpitations Gastrointestinal: denies: nausea, vomiting, abdominal pain - Medication Medications: Active Medications Generic Name Dose Route Start Last Admin Trade Name Freq PRN Reason Stop Dose Admin Aspirin 325 mg 03/29/20 09:00 03/29/20 08:17 Aspirin 325 Mg Enteric Coated Tablet PO 325 mg DAILY YAQUELIN Administration Atorvastatin Calcium 80 mg 03/29/20 21:00 03/29/20 21:09 Atorvastatin Calcium 40 Mg Tab PO 80 mg HS YAQUELIN Administration Bupropion HCl 75 mg 03/29/20 09:00 03/29/20 09:28 Bupropion 75 Mg Tab PO 75 mg DAILY YAQUELIN Administration Enoxaparin Sodium 40 mg 03/29/20 09:00 03/29/20 08:17 Enoxaparin Sodium 40 Mg/0.4 Ml Syringe SC 40 mg 0900 YAQUELIN Administration Meclizine HCl 25 mg 03/29/20 22:00 03/30/20 06:02 Meclizine Hcl 25 Mg Tab PO 25 mg Q8HR YAQUELIN Administration Pantoprazole Sodium 40 mg 03/29/20 09:00 03/29/20 09:28 Pantoprazole 40 Mg Tab PO 40 mg DAILY YAQUELIN Administration Sodium Chloride 10 ml 03/28/20 22:14 03/29/20 21:09 Flush - Normal Saline 10 Ml Syringe IVF 10 ml PRN PRN Administration Saline Flush - Exam General Appearance: NAD, awake alert ENT: moist mucosa Heart: RRR, no murmur, no gallops, no rubs Respiratory: CTAB, no wheezes, no rales, no ronchi Gastrointestinal: soft, non-tender, non-distended, normal bowel sounds Psychiatric: normal affect, normal behavior, A&O x 3 Hosp A/P (1) Dizziness Code(s): R42 - DIZZINESS AND GIDDINESS Status: Acute (2) CAD (coronary artery disease) Code(s): I25.10 - ATHSCL HEART DISEASE OF [place] CORONARY ARTERY W/O ANG PCTRS Status: Chronic (3) HTN (hypertension) Code(s): I10 - ESSENTIAL (PRIMARY) HYPERTENSION Status: Chronic (4) HLD (hyperlipidemia) Code(s): E78.5 - HYPERLIPIDEMIA, UNSPECIFIED Status: Chronic - Plan Patient with new onset dizziness and unsteadiness. MRI negative, no evidence posterior stroke. Orthostatics negative for BP drop on standing. Dr. Barraza consulted and doesn't think this is cardiac related. Patient appears to have a labyrinthitis. Will treat with Meclizine and d/c home.
[2020-03-30] MEDS ORDERED: Ezetimibe 10 MG TAB PO SCH (09:00)
[2020-03-30] MEDS: Aspirin 325 mg Enteric Coated Tablet PO SCH (09:08)
[2020-03-30] MEDS: buPROPion 75 MG TAB PO SCH (09:09)
[2020-03-30] MEDS: Enoxaparin Sodium 40 MG/0.4 ML SYRINGE SC SCH (09:10)
[2020-03-30] MEDS ORDERED: Acetaminophen 325 MG TAB PO PRN (09:26)
[2020-03-30 12:37] VITALS: BP 155/85; TEMP 98.3
--- NOTE | 2020-04-01 08:07 | DIS ---
DATE OF ADMISSION: 03/28/2020 DATE OF DISCHARGE: 03/30/2020 PRIMARY CARE PHYSICIAN: Dmitriy Galarza. REASON FOR ADMISSION: Dizziness. DIAGNOSES AT DISCHARGE: 1. Dizziness due to acute labyrinthitis. 2. Coronary artery disease. 3. Hypertension. 4. Hyperlipidemia. PROCEDURES: 1. CT scan of the brain without contrast showing no acute intracranial hemorrhage or other acute findings. 2. CT, aortic dissection protocol of the chest and abdomen, showing no evidence of aneurysm or dissection of the thoracic or abdominal aorta. 3. MRI of the brain without contrast showing no acute findings, no evidence of stroke. 4. MR angio of the neck with and without contrast showing unremarkable angiography of the neck. CONSULTATIONS: 1. Cardiology, Dr. Barraza. 2. Neurology, Dr. Clarke. SUMMARY OF HOSPITAL COURSE: This is a 45-year-old male with a history of coronary artery disease, hypertension, hyperlipidemia, who presented with dizziness going back for 5 days, making it difficult to ambulate, he will lose his balance, has to hold onto things, not having any vertigo sensation though. The patient had recently been seen in the emergency room prior to this for back pain, was started on some steroids. The dizziness started after this. The patient was evaluated in the emergency room. He had imaging done as above. He was observed in the hospital. He was ruled out for stroke and ruled out for acute coronary syndrome. Dr. Barraza determined this was not likely cardiac in origin, and so the patient is being treated for an acute labyrinthitis with meclizine. He has had improvement in his symptoms, was able to ambulate better today to the nursing station and back without holding onto anything. Physical Therapy is going to evaluate him and then he is going to be discharged home, likely with Home Health for PT. DISCHARGE MANAGEMENT: Discharged home with Home Health. ACTIVITY: As tolerated. DIET: Healthy heart, low-sodium diet. THERAPY: Physical therapy with Home Health versus outpatient. FOLLOWUP: Follow up with primary care physician next week and with Dr. Conner Doran, ENT in 1 to 2 weeks if no improvement in symptoms. DISCHARGE MEDICATIONS: 1. Meclizine 25 mg every 8 hours as needed for dizziness, 30 tablets dispensed. 2. Aspirin 81 mg daily. 3. Atorvastatin 80 mg daily. 4. Bupropion 75 mg daily. 5. Diazepam 5 mg every 8 hours as needed for anxiety. 6. Omeprazole 40 mg daily. 7. Zetia 10 mg daily. 8. Toradol 10 mg every 6 hours as needed for pain, he has not been taking this. Job ID: [id number]
== END 2020-03-30 15:50 | disposition home or self-care (01) ==
LOC: ERS 17:05 → ERHOLD 20:55 → T4-B 03-29 01:29 → 2NO 03-29 15:50
PROVIDERS: ADMIT Internal Medicine; ATTEND Emergency Medicine
DX: H83.09 Labyrinthitis, unspecified ear (principal); I25.10 Atherosclerotic heart disease of native coronary artery without angina pectoris; I10 Essential (primary) hypertension; E78.5 Hyperlipidemia, unspecified; E78.00 Pure hypercholesterolemia, unspecified; F17.210 Nicotine dependence, cigarettes, uncomplicated; I25.2 Old myocardial infarction; Z79.82 Long term (current) use of aspirin; Z79.899 Other long term (current) drug therapy; Z20.828 Contact with and (suspected) exposure to other viral communicable diseases
CPT/HCPCS: 36415; 70450; 70549; 70551; 71045; 71275; 74174; 80048; 80053; 80061; 80306; 81003; 82550; 82553; 83036; 83605; 84484; 85025; 87040; 87086; 87635; 93005; 93306; 96372; 96374; 96375; A9579; G0378; J1200; J1650; J2060; Q9967; U0003

== ENCOUNTER 2020-06-18 15:40 | Inpatient (IN) | payer SELFPAY ==
[~2020-06-18 15:40] MED LIST changes: +Iopamidol 370 76% 100 ML VIAL ONE; +Iopamidol 370 76% 50 ML VIAL FS ONE; -Iopamidol-370 76% 500 ML 1 ML ONE
[2020-06-18] MEDS ORDERED: Morphine 4 MG/ML VIAL ONE (15:57)
[2020-06-18 16:04] LABS: Hemoglobin 17.2 g/dL (14.0-18.0); Mean Corpuscular HGB CONC 35.6 g/dL (32.0-36.0); Mean Corpuscular Hemoglobin 32.9 pg (27.0-31.0); Mean Corpuscular Volume 92.4 fL (78.0-98.0); Mean Platelet Volume 7.3 fL (7.4-10.4); Platelet Count 220 thou/uL (130-400); RBC Distribution Width 11.9 % (11.5-14.5); Red Blood Cell (RBC) Count 5.24 mill/uL (4.70-6.10); White Blood Cell (WBC) Count 13.4 thou/uL (4.8-10.8)
--- NOTE | 2020-06-18 16:06 | RAD ---
PORTABLE CHEST: 06/18/20 HISTORY: Chest pain. COMPARISON: 03/28/20 exam. Heart size and mediastinum are within normal limits for portable technique. The lungs are clear of an y infiltrates. No signs of failure. IMPRESSION: No active intrathoracic disease. POS: [facility]
[2020-06-18 16:09] LABS: INR-International Normal Ratio 1.1; Prothrombin Time 14.3 sec (12.0-14.7)
[2020-06-18 16:19] LABS: ALT (SGPT) 31 U/L (8-55); AST (SGOT) 20 U/L (5-34); Alkaline Phosphatase 71 U/L (40-110); Anion Gap 16 mmol/L (10-20); BUN (Urea Nitrogen) 13 mg/dL (8.9-20.6); Bilirubin, Total 0.3 mg/dL (0.2-1.2); Calc. Creatinine Clearance 0 mL/min (70-130); Calcium 9.2 mg/dL (7.8-10.44); Carbon Dioxide 17 mmol/L (22-29); Chloride 110 mmol/L (98-107); Globulin 3.3 g/dL (2.4-3.5); Glucose 106 mg/dL (70-105); Potassium 3.9 mmol/L (3.5-5.1); Protein, Total 7.3 g/dL (6.0-8.3); Sodium 139 mmol/L (136-145)
[2020-06-18 16:24] LABS: PTT Greater than 250.0 sec (22.9-36.1)
[2020-06-18 16:26] LABS: MDiff Complete? YES
[2020-06-18 16:27] LABS: Eosinophils 2 % (0-10); Lymphocytes 39 % (21-51); Monocytes 13 % (0-10); Neutrophil 45 % (42-75); Platelet Morphology Comment Appears Adequate; RBC Morphology Normal; Reactive Lymphocytes 1 % (0-10)
[2020-06-18] MEDS ORDERED: Nitroglycerin 0.4 MG TAB (25 Tab Bottle) SL PRN (16:54)
[2020-06-18] MEDS ORDERED: traMADol HCl 50 MG TAB PO PRN (16:54)
[2020-06-18] MEDS ORDERED: Morphine 2 MG/ML VIAL SLOW IVP PRN (16:54)
[2020-06-18] MEDS ORDERED: Acetaminophen/Codeine 30-300mg Tablet PO PRN (16:54)
[2020-06-18] MEDS ORDERED: Zolpidem Tartrate 5 MG TAB PO PRN (16:54)
[2020-06-18] MEDS ORDERED: Milk Of Magnesia 30 ML UDCUP PO PRN (16:54)
[2020-06-18] MEDS ORDERED: Mag-Al 1200 mg/1200 mg/30 ML UDCUP PO PRN (16:54)
[2020-06-18 17:18] LABS: SARS-CoV-2 NAA Rapid Test Not Detected (NotDetected)
--- NOTE | 2020-06-18 17:30 | HP ---
CHIEF COMPLAINT: Chest pain. HISTORY OF PRESENT ILLNESS: Mr. Boyer is a 45-year-old white gentleman, who comes to the hospital for chest pain. He apparently had a chest pain for about 45 minutes before calling 911. It took him about 50 minutes to get him here, was diagnosed with inferior ST-elevation VT. On the way in, the STEMI pager was activated. On my evaluation, he was having ongoing chest pain and blood pressure was better controlled with nitroglycerin patch. EKG was consistent with inferolateral VT, so he was taken emergently to the catheterization lab, where he was found to have an occluded left circumflex. He had a bare-metal stent placed successfully opening up the artery with good results. He had resolution of his symptoms after the stent. PAST MEDICAL HISTORY: 1. Hypertension. 2. History of coronary artery disease, mild in the past. 3. Hyperlipidemia. OUTPATIENT MEDICATIONS: Include: 1. Aspirin 81 a day. 2. Atorvastatin 80 mg a day. 3. Valium p.r.n. 4. Toradol p.r.n. 5. Omeprazole daily. 6. Wellbutrin daily, 75 mg a day. ALLERGIES: NO KNOWN DRUG ALLERGIES. SOCIAL HISTORY: Smokes 2 packs per day for many years now. Social alcohol use. No drug use. FAMILY HISTORY: No early coronary artery disease. REVIEW OF SYSTEMS: A 12-point review of systems was done and was found to be negative other than stated in the history of present illness. PHYSICAL EXAMINATION: VITAL SIGNS: Temperature 97.2, pulse 80, respiratory rate 16, saturating 98% on room air, blood pressure on arrival it was 160/110; however, currently after his catheterization, it is 118/70. GENERAL: Awake, alert, oriented x3. In no distress. HEENT: Normocephalic, atraumatic. NECK: Supple. LUNGS: Clear. CARDIOVASCULAR: S1, S2. No S3 or S4. No murmurs. ABDOMEN: Soft. Positive bowel sounds. EXTREMITIES: No edema. SKIN: Warm and dry. LABORATORY DATA: Laboratory work was reviewed. White count of 13, hemoglobin 17, hematocrit 48, and platelet count of 220. Coags were reviewed. Chemistries were reviewed. Initial troponin was 0.15, CK-MB was 3.0, and BNP of 11. GFR was 73 with a BUN of 13, creatinine 0.08, albumin of 4.0, normal sodium and potassium. Chest x-ray on arrival showed no active intrathoracic disease. ASSESSMENT AND PLAN: 1. Inferolateral ST-elevation myocardial infarction. 2. Status post bare-metal stent to the left circumflex, 2.5 mm x 24 mm, good results. 3. Mild residual coronary artery disease on LAD and RCA. 4. Hypertension. 5. Hyperlipidemia. PLAN: 1. Continue Brilinta for minimum of 1 month, ideally for 1 year, may switch to Plavix after 1 month. 2. Aspirin for life. 3. High-dose statin. Currently, he is taking 80 mg of atorvastatin at night, so we will continue this. 4. His blood pressure is borderline now that he is out of the acute setting, may be related to the morphine that he got for pain. We will wait to restart some losartan or beta sophia until tomorrow when his blood pressure is more stable. 5. PPI for stress ulcer prophylaxis. 6. Subcutaneous Lovenox for DVT prophylaxis to start tomorrow morning. 7. Angio-Seal closure device was placed in the right femoral arteriotomy site. 8. Full code. 9. Disposition, pending clinical evolution, likely home in the next 2 days. Critical time 60 minutes. Job ID: [id number] MTDD
[2020-06-18] MEDS ORDERED: Ondansetron PF 4 MG/2 ML Vial IVP PRN (20:50)
[2020-06-18] MEDS ORDERED: Ondansetron PF 4 MG/2 ML Vial ONE (20:56)
[2020-06-18] MEDS ORDERED: Atorvastatin Calcium 40 MG TAB PO SCH (21:00)
[2020-06-18] MEDS ORDERED: Sodium Chloride 0.9% 500 ML IV SCH (21:00)
[2020-06-19 00:16] LABS: CKMB 381.1 ng/mL (0-6.6); Troponin I 121.608 ng/mL (< 0.028)
[2020-06-19] MEDS: TICAGRELOR 90 MG TABLET PO SCH ×2 (01:20→09:11)
[2020-06-19 04:16] LABS: #Eosinphils 0.2 thou/uL (0.0-0.7); #Lymphocytes 4.5 thou/uL (1.20-3.40); #Monocytes 1.4 thou/uL (0.11-0.59); #Neutrophils 9.5 thou/uL (1.40-6.50); %Basophils 0.2 % (0.0-1.0); %Eosinophils 1.2 % (0.0-10.0); %Lymphocytes 28.9 % (21.0-51.0); %Monocytes 8.9 % (0.0-10.0); %Neutrophils 60.7 % (42.0-75.0); Hemoglobin 15.6 g/dL (14.0-18.0); Mean Corpuscular Hemoglobin 31.5 pg (27.0-31.0); Mean Corpuscular Volume 92.6 fL (78.0-98.0); Mean Platelet Volume 7.2 fL (7.4-10.4); Platelet Count 205 thou/uL (130-400); RBC Distribution Width 12.1 % (11.5-14.5); Red Blood Cell (RBC) Count 4.94 mill/uL (4.70-6.10); White Blood Cell (WBC) Count 15.6 thou/uL (4.8-10.8)
[2020-06-19 04:38] LABS: ALT (SGPT) 60 U/L (8-55); AST (SGOT) 216 U/L (5-34); Albumin 3.4 g/dL (3.5-5.0); Alkaline Phosphatase 62 U/L (40-110); Anion Gap 14 mmol/L (10-20); BUN (Urea Nitrogen) 12 mg/dL (8.9-20.6); Bilirubin, Total 0.4 mg/dL (0.2-1.2); Calc. Creatinine Clearance 0 mL/min (70-130); Carbon Dioxide 18 mmol/L (22-29); Cardiac Risk 7.7 (Less than 4.5); Chloride 110 mmol/L (98-107); Cholesterol 170 mg/dl (< 200 Desired); Globulin 2.5 g/dL (2.4-3.5); Glucose 95 mg/dL (70-105); HDL Cholesterol 22 mg/dL (>60 Neg Risk); LDL Cholesterol, Calculated 86 mg/dL; Potassium 3.6 mmol/L (3.5-5.1); Protein, Total 5.9 g/dL (6.0-8.3); Sodium 138 mmol/L (136-145); Triglycerides 310 mg/dL (Less than 150)
[2020-06-19 04:44] LABS: Calcium 8.3 mg/dL (7.8-10.44)
[2020-06-19 04:46] LABS: CKMB 229.9 ng/mL (0-6.6); Critical Call CKMB 2NO.JAC
[2020-06-19 05:24] VITALS: BMI 30.7
[2020-06-19] MEDS ORDERED: Non-Formulary Item 1 EACH (Atorvastatin Calcium [Atorvastatin Calcium] 80 MG Tablet) PO SCH (09:00)
[2020-06-19] MEDS ORDERED: Ezetimibe 10 MG TAB PO SCH (09:00)
[2020-06-19] MEDS ORDERED: buPROPion 75 MG TAB PO SCH (09:00)
[2020-06-19] MEDS ORDERED: Aspirin 81 mg Enteric Coated Tablet PO SCH (09:00)
[2020-06-19 15:22] VITALS: BP 140/92; TEMP 97.7
[2020-06-19] MEDS ORDERED: FLU VACC QS2020-21(6MOS UP)/PF 60 MCG/0.5 ML SYRINGE IM ONE (21:00)
--- NOTE | 2020-06-20 00:29 | DIS ---
DATE OF ADMISSION: 06/18/2020 DATE OF DISCHARGE: 06/19/2020 DISCHARGE SUMMARY: 1. Inferolateral ST elevation myocardial infarction. 2. Placement of bare metal stent Rebel 2.5 x 24 mm in the left circumflex. 3. Mild disease in the left anterior descending artery and the right coronary artery. 4. Hypertension. 5. Hyperlipidemia. 6. Smoker. DISCHARGE DISPOSITION: The patient will be seen in 6 weeks with EKG, fasting lipid profile and complete metabolic panel. DISCHARGE MEDICATIONS: 1. Nitroglycerin 0.4 mg sublingually p.r.n. 2. Plavix 75 mg daily x1 month. 3. Aspirin 81 daily. 4. Atorvastatin 80 mg daily. 5. Zetia 10 mg daily. 6. Cetirizine 10 mg daily. 7. Losartan 100 mg daily. 8. Metoprolol 25 XL daily. HOSPITAL COURSE: Mr. Boyer presented to the emergency room complaining of chest discomfort. EKG showed left inferolateral STEMI with approximately 1 mm of elevation in II, III, aVF, V5 and V6. He was taken to the cardiac cardiac cath tech and was found to have a totally occluded circumflex. He underwent placement of a bare-metal stent by Dr. Jacob. He was placed on Brilinta, but the patient does not have any insurance and does not think he can afford this and so it was changed to Plavix. Also Zetia was added due to cholesterol of 170, triglycerides 310, HDL 22, LDL 86. This will be rechecked in 6 weeks. Job ID: [id number]
--- NOTE | 2020-06-20 07:22 | EKG ---
Test Reason : Blood Pressure : / mmHG Vent. Rate : 085 BPM Atrial Rate : 085 BPM P-R Int : 138 ms QRS Dur : 094 ms QT Int : 362 ms P-R-T Axes : 072 057 077 degrees QTc Int : 430 ms Sinus rhythm with Premature atrial complexes with Abberant conduction Nonspecific T wave abnormality Abnormal ECG When compared with ECG of 28-MAR-2020 17:13, (Unconfirmed) Abberant conduction is now Present MN interval has increased Non-specific change in ST segment in Inferior leads Confirmed by DR. Derek WILCOX ([id number]) on 06/20/2020 7:21:37 AM Referred By: LUCY Confirmed By:DR. Derek WILCOX
[2020-06-20] MEDS ORDERED: Clopidogrel Bisulfate 75 MG TAB PO SCH (09:00)
== END 2020-06-19 18:31 | disposition home or self-care (01) | DRG 249 ==
LOC: ERS 15:40 → SDC/OP 16:08 → ERS 16:09 → 2NO 19:25
PROVIDERS: ADMIT Internal Medicine Cardiovascular Disease; ATTEND Internal Medicine Cardiovascular Disease
PROC: 02703DZ Dilation of Coronary Artery, One Artery with Intraluminal Device, Percutaneous Approach (ICD-10-PCS; principal; 2020-06-18)
PROC: 4A023N7 Measurement of Cardiac Sampling and Pressure, Left Heart, Percutaneous Approach (ICD-10-PCS; 2020-06-18)
PROC: B2111ZZ Fluoroscopy of Multiple Coronary Arteries using Low Osmolar Contrast (ICD-10-PCS; 2020-06-18)
PROC: B2151ZZ Fluoroscopy of Left Heart using Low Osmolar Contrast (ICD-10-PCS; 2020-06-18)
DX: I21.19 ST elevation (STEMI) myocardial infarction involving other coronary artery of inferior wall (principal); Z20.822 Contact with and (suspected) exposure to COVID-19; Z23 Encounter for immunization; I25.10 Atherosclerotic heart disease of native coronary artery without angina pectoris; I10 Essential (primary) hypertension; E78.5 Hyperlipidemia, unspecified; F17.210 Nicotine dependence, cigarettes, uncomplicated; E78.00 Pure hypercholesterolemia, unspecified; Z79.899 Other long term (current) drug therapy; Z79.82 Long term (current) use of aspirin; I25.2 Old myocardial infarction
CPT/HCPCS: 36415; 71045; 76942; 80053; 80061; 82553; 83880; 84443; 84484; 85025; 85347; 85610; 85730; 92928; 93005; 93010; 93306; 93458; 93798; 99152; C1760; C1876; J2270; J2405; Q9967; U0002

== ENCOUNTER 2020-07-14 21:19 | Observation (INO) | payer SELFPAY ==
[2020-07-14 22:08] LABS: #Basophils 0.1 thou/uL (0.0-0.2); #Eosinphils 0.2 thou/uL (0.0-0.7); #Lymphocytes 3.4 thou/uL (1.20-3.40); #Neutrophils 3.4 thou/uL (1.40-6.50); %Basophils 1.3 % (0.0-1.0); %Eosinophils 2.8 % (0.0-10.0); %Lymphocytes 41.8 % (21.0-51.0); %Monocytes 12.3 % (0.0-10.0); %Neutrophils 41.9 % (42.0-75.0); Hemoglobin 16.1 g/dL (14.0-18.0); Mean Corpuscular HGB CONC 33.5 g/dL (32.0-36.0); Mean Corpuscular Hemoglobin 30.6 pg (27.0-31.0); Mean Corpuscular Volume 91.3 fL (78.0-98.0); Mean Platelet Volume 7.5 fL (7.4-10.4); Platelet Count 206 thou/uL (130-400); RBC Distribution Width 11.9 % (11.5-14.5); Red Blood Cell (RBC) Count 5.27 mill/uL (4.70-6.10); White Blood Cell (WBC) Count 8.2 thou/uL (4.8-10.8)
[2020-07-14 22:17] LABS: ALT (SGPT) 41 U/L (8-55); AST (SGOT) 25 U/L (5-34); Albumin 4.1 g/dL (3.5-5.0); Alkaline Phosphatase 72 U/L (40-110); Anion Gap 12 mmol/L (10-20); BUN (Urea Nitrogen) 14 mg/dL (8.9-20.6); Bilirubin, Total 0.3 mg/dL (0.2-1.2); Calc. Creatinine Clearance 0 mL/min (70-130); Carbon Dioxide 25 mmol/L (22-29); Chloride 108 mmol/L (98-107); Globulin 3.1 g/dL (2.4-3.5); Glucose 93 mg/dL (70-105); Protein, Total 7.2 g/dL (6.0-8.3); Sodium 141 mmol/L (136-145)
--- NOTE | 2020-07-14 22:25 | RAD ---
2 views chest: 07/14/2020 COMPARISON: 06/18/2020 HISTORY: Chest pain and pressure FINDINGS: No pneumothorax, pleural fluid, focal consolidation, or alveolar edema. Heart and mediastin al contours are stable. No acute osseous abnormality. IMPRESSION: No acute findings.
[2020-07-14 22:38] LABS: CKMB 1.6 ng/mL (0-6.6)
[2020-07-14] MEDS ORDERED: Nitroglycerin 2% Ointment 1 INCH/1 GM Packet ONE (23:20)
[2020-07-14] MEDS ORDERED: Aspirin Chewable 81 MG TAB ONE (23:20)
[2020-07-15] MEDS ORDERED: Acetaminophen 650 MG Suppository PR PRN (01:05)
[2020-07-15] MEDS ORDERED: Acetaminophen 325 MG TAB PO PRN (01:05)
--- NOTE | 2020-07-15 01:32 | PDOC.HHP ---
Hospitalist HPI Chest pain History of Present Illness: Mr. Boyer is a 45-year-old male with past medical history of a STEMI status p ost BMS on 06/18/2020 who presents emergency room for chest pain. Patient reports that he has had intermittent chest pain over the past week and that today his symptoms were worse with left arm pain and rating up into his jaw. His pain was not relieved with sublingual nitro. Patient reports that this pain lasted for most of the day, and then surround to the emergency room has now subsided. Patient is a smoker and has cut down from 1.5 packs/day to 4 cigarettes daily. He denies any shortness of breath, dizziness, numbness weakness associated with this pain. In emergency room initial vital signs 149/102, 89, 20, 97.8, 98% on room air. Initial troponin 0 0.05. EKG with normal sinus rhythm and nonspecific T wave inversions. No ST elevation. H/H 16.1/48.1, WBC 8.2, glucose 206. BUN/Cr 14/1.23, sodium 141, potassium 4.0. Patient received 325 mg of aspirin and sublingual nitro. Allergies/Adverse Reactions: Allergy/AdvReac Type Severity Reaction Status Date / Time No Known Drug Allergies Allergy Verified 06/19/20 04:55 Home Medications: Medication Instructions Recorded Confirmed Type Aspirin [Aspirin EC] 81 mg PO DAILY 03/29/20 06/19/20 History Atorvastatin Calcium 80 mg PO DAILY 03/29/20 06/19/20 History Cetirizine HCl [Zyrtec] 10 mg PO DAILY 06/19/20 06/19/20 History Clopidogrel Bisulfate [Plavix] 75 mg PO DAILY #30 tab 06/19/20 Rx Ezetimibe [Zetia] 10 mg PO DAILY #30 tab 06/19/20 Rx Losartan [Cozaar] 100 mg PO DAILY 06/19/20 06/19/20 History Metoprolol Succinate [Toprol XL] 25 mg PO DAILY 06/19/20 06/19/20 History Nitroglycerin [Nitrostat] 0.4 mg SL Q5MIN PRN #25 tab 06/19/20 Rx buPROPion [Wellbutrin] 75 mg PO DAILY tab 06/19/20 Rx Past History: PMHx: STEMI status post bare-metal stent on 06/18/2020 Hypertension Hyperlipidemia Tobacco use PSHx: Cardiac stent FHx: Reports significant family history of early coronary artery disease in his brother, uncles and grandparents. Social: Tobacco user has cut down from 1/2 pack/day to 4 cigarettes daily. No alcohol or drug use. 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 Hospitalist HPI ROS Constitutional: denies: fever, chills, sweats, weakness, malaise, other Eyes: denies: pain, vision change, conjunctivae inflammation, eyelid inflammation, redness, other ENT: denies: ear pain, ear discharge, nose pain, nose discharge, nose congestion, mouth pain, mouth swelling, throat pain, throat swelling, other Respiratory: denies: cough, dry, shortness of breath, hemoptysis, SOB with excertion, pleuritic pain, sputum, wheezing, other Cardiovascular: reports: chest pain. denies: palpitations, orthopnea, paroxysmal noc. dyspnea, edema, light headedness, other Gastrointestinal: denies: nausea, vomiting, abdominal pain, diarrhea, constipation, melena, hematochezia, other Genitourinary: denies: dysuria, frequency, incontinence, hematuria, retention, other Musculoskeletal: denies: neck pain, shoulder pain, arm pain, back pain, hand pain, leg pain, foot pain, other Skin: denies: rash, lesions, anabel, bruising, other Neurological: denies: weakness, numbness, incoordination, change in speech, confusion, seizures, other Hospitalist Exam General Appearance: NAD, awake alert Eye: PERRL, anicteric sclera ENT: normocephalic atraumatic, no oropharyngeal lesions, moist mucosa Neck: supple, symmetric, no JVD, no thyromegaly, no lymphadenopathy, no carotid bruit Heart: RRR, no murmur, no gallops, no rubs, normal peripheral pulses Respiratory: CTAB, no wheezes, no rales, no ronchi, normal chest expansion, no tachypnea, normal percussion Gastrointestinal: soft, non-tender, non-distended, normal bowel sounds, no palpable masses, no hepatomegaly, no splenomegaly, no bruit Extremities: no cyanosis, no clubbing, no edema Skin: normal turgor, no lesions, no rashes Neurological: cranial nerve grossly intact, normal sensation to touch, no weakness, no focal deficits, no new deficit Musculoskeletal: normal tone, normal strength, no muscle wasting Psychiatric: normal affect, normal behavior, A&O x 3 Hospitalist Results Result Diagrams: 07/14/20 21:47 07/14/20 21:47 Lab results: Laboratory Last Values WBC 8.2 thou/uL (4.8-10.8) 07/14/20 21:47 RBC 5.27 mill/uL (4.70-6.10) 07/14/20 21:47 Hgb 16.1 g/dL (14.0-18.0) 07/14/20 21:47 Hct 48.1 % (42.0-52.0) 07/14/20 21:47 MCV 91.3 fL (78.0-98.0) 07/14/20 21:47 MCH 30.6 pg (27.0-31.0) 07/14/20 21:47 MCHC 33.5 g/dL (32.0-36.0) 07/14/20 21:47 RDW 11.9 % (11.5-14.5) 07/14/20 21:47 Plt Count 206 thou/uL (130-400) 07/14/20 21:47 MPV 7.5 fL (7.4-10.4) 07/14/20 21:47 Neutrophils % 41.9 % (42.0-75.0) L 07/14/20 21:47 Lymphocytes % 41.8 % (21.0-51.0) 07/14/20 21:47 Monocytes % 12.3 % (0.0-10.0) H 07/14/20 21:47 Eosinophils % 2.8 % (0.0-10.0) 07/14/20 21:47 Basophils % 1.3 % (0.0-1.0) H 07/14/20 21:47 Neutrophils # 3.4 thou/uL (1.40-6.50) 07/14/20 21:47 Lymphocytes # 3.4 thou/uL (1.20-3.40) 07/14/20 21:47 Monocytes # 1.0 thou/uL (0.11-0.59) H 07/14/20 21:47 Eosinophils # 0.2 thou/uL (0.0-0.7) 07/14/20 21:47 Basophils # 0.1 thou/uL (0.0-0.2) 07/14/20 21:47 Sodium 141 mmol/L (136-145) 07/14/20 21:47 Potassium 4.0 mmol/L (3.5-5.1) 07/14/20 21:47 Chloride 108 mmol/L (98-107) H 07/14/20 21:47 Carbon Dioxide 25 mmol/L (22-29) 07/14/20 21:47 Anion Gap 12 mmol/L (10-20) 07/14/20 21:47 BUN 14 mg/dL (8.9-20.6) 07/14/20 21:47 Creatinine 1.23 mg/dL (0.7-1.3) 07/14/20 21:47 Estimated GFR (MDRD) 63 07/14/20 21:47 Glucose 93 mg/dL (70-105) 07/14/20 21:47 Calcium 9.0 mg/dL (7.8-10.44) 07/14/20 21:47 Total Bilirubin 0.3 mg/dL (0.2-1.2) 07/14/20 21:47 AST 25 U/L (5-34) 07/14/20 21:47 ALT 41 U/L (8-55) 07/14/20 21:47 Alkaline Phosphatase 72 U/L (40-110) 07/14/20 21:47 CK-MB (CK-2) 1.6 ng/mL (0-6.6) 07/14/20 21:47 Troponin I 0.050 ng/mL (< 0.028) H 07/15/20 00:42 Serum Total Protein 7.2 g/dL (6.0-8.3) 07/14/20 21:47 Albumin 4.1 g/dL (3.5-5.0) 07/14/20 21:47 Globulin 3.1 g/dL (2.4-3.5) 07/14/20 21:47 Albumin/Globulin Ratio 1.3 g/dL (1.2-2.2) 07/14/20 21:47 Hospitalist H&P A/P Plan: Chest pain 45-year-old male past medical history of STEMI with recent BMS placed on 126 presents with anginal symptoms. Patient currently chest pain-free. EKG with no ischemic changes. Initial troponin 0 0.05. Will consult cardiology and continue telemetry monitoring. Plan Cardiology consult Telemetry monitoring Aspirin, Plavix Nitropaste Coronary artery disease History of CAD with recent STEMI on 06/18/2020. Patient underwent cardiac cath with bare-metal stent placed. Patient currently on dual antiplatelet therapy with aspirin and Plavix. Patient reports that he has only been taking his aspirin occasionally since he has noticed easy bleeding when scratching himself. Impressed upon patient the importance of continuing his dual antiplatelet therapy as prescribed to prevent blood clots and further heart attacks especially in the early days after a stent. We will continue home medications. Plan Aspirin, Plavix Continue metoprolol Hypertension Continue home metoprolol Hyperlipidemia Continue home atorvastatin Tobacco use Patient counseled on tobacco cessation. We will continue home Wellbutrin. DVT prophylaxisSCDs Full code Case discussed with attending physician, Dr. Jerome
[2020-07-15 03:32] VITALS: BMI 30.5
[2020-07-15 05:06] LABS: #Basophils 0.1 thou/uL (0.0-0.2); #Eosinphils 0.3 thou/uL (0.0-0.7); #Lymphocytes 3.8 thou/uL (1.20-3.40); #Monocytes 0.9 thou/uL (0.11-0.59); #Neutrophils 3.6 thou/uL (1.40-6.50); %Eosinophils 3.4 % (0.0-10.0); %Lymphocytes 43.9 % (21.0-51.0); %Monocytes 10.4 % (0.0-10.0); %Neutrophils 41.3 % (42.0-75.0); Hemoglobin 16.3 g/dL (14.0-18.0); Mean Corpuscular HGB CONC 33.2 g/dL (32.0-36.0); Mean Corpuscular Hemoglobin 30.3 pg (27.0-31.0); Mean Corpuscular Volume 91.2 fL (78.0-98.0); Mean Platelet Volume 7.3 fL (7.4-10.4); Platelet Count 204 thou/uL (130-400); Red Blood Cell (RBC) Count 5.39 mill/uL (4.70-6.10); White Blood Cell (WBC) Count 8.8 thou/uL (4.8-10.8)
[2020-07-15 05:08] LABS: SARS-CoV-2 PCR by NAA Not Detected (NotDetected)
[2020-07-15 05:26] LABS: Anion Gap 12 mmol/L (10-20); BUN (Urea Nitrogen) 16 mg/dL (8.9-20.6); Calc. Creatinine Clearance 103 mL/min (70-130); Carbon Dioxide 22 mmol/L (22-29); Chloride 110 mmol/L (98-107); Glucose 95 mg/dL (70-105); Potassium 4.3 mmol/L (3.5-5.1); Sodium 140 mmol/L (136-145)
[2020-07-15 05:32] LABS: Troponin I 0.057 ng/mL (< 0.028)
[2020-07-15] MEDS: Nitroglycerin 2% Ointment 1 INCH/1 GM Packet TOP SCH ×3 (06:00→20:43)
[2020-07-15] MEDS: Aspirin Chewable 81 MG TAB PO SCH (09:09)
[2020-07-15] MEDS: Clopidogrel Bisulfate 75 MG TAB PO SCH (09:10)
[2020-07-15] MEDS: Atorvastatin Calcium 40 MG TAB PO SCH (09:12)
--- NOTE | 2020-07-15 12:47 | PDOC.HOSPP ---
- Subjective Encounter Date: 07/15/20 Encounter Time: 12:43 Subjective: Patient states he has mild discomfort, 1/10 in severity. States he had pain when he was brought up to the floor, 3/10 and it settled once he rested. It is brought on with exertion however he had no pain when he got up to go to the bathroom earlier this morning. Reports increased discomfort with deep inspiration and expressed concern over having blood clots. Has had "rough breathing" when the pain has been at its worst. No shortness of breath when ambulating to the bathroom this morning. No cough or hemoptysis. No lower leg pain or swelling. His last meal was yesterday evening. - Objective Vital Signs & Weight: Vital Signs (12 hours) Temp Pulse Resp BP Pulse Ox 07/15/20 11:43 97.5 F L 69 18 129/85 07/15/20 08:11 97.8 F 88 13 115/70 92 L 07/15/20 02:48 97.6 F 79 12 137/104 H 96 07/15/20 01:05 96 Weight Weight 195 lb I&O: 07/14/20 07/15/20 07/16/20 06:59 06:59 06:59 Intake Total 10 Balance 10 Result Diagrams: 07/15/20 05:01 07/15/20 05:01 Radiology Reviewed by me: Yes EKG Reviewed by me: Yes Hospitalist ROS - Review of Systems All other systems reviewed; all pertinent +/- noted in HPI/Subj (Apart from what is mentioned above.) - Medication Medications: Active Medications Generic Name Dose Route Start Last Admin Trade Name Ca PRN Reason Stop Dose Admin Aspirin 81 mg 07/15/20 09:00 07/15/20 09:09 Aspirin Chewable 81 Mg Tab PO 81 mg DAILY YAQUELIN Administration Atorvastatin Calcium 80 mg 07/15/20 09:00 07/15/20 09:12 Atorvastatin Calcium 40 Mg Tab PO Not Given DAILY YAQUELIN Clopidogrel Bisulfate 75 mg 07/15/20 09:00 07/15/20 09:10 Clopidogrel Bisulfate 75 Mg Tab PO 75 mg DAILY YAQUELIN Administration Metoprolol Succinate 25 mg 07/15/20 09:00 07/15/20 09:11 Metoprolol Succinate Xl 25 Mg Tab PO 25 mg DAILY YAQUELIN Administration Nitroglycerin 0.5 inch 07/15/20 06:00 07/15/20 06:00 Nitroglycerin 2% Ointment 1 Inch/1 Gm Packet TOP Not Given Q8HR [facility] Hospitalist Exam Vitals: Vital Signs (12 hours) Temp Pulse Resp BP Pulse Ox 07/15/20 11:43 97.5 F L 69 18 129/85 07/15/20 08:11 97.8 F 88 13 115/70 92 L 07/15/20 02:48 97.6 F 79 12 137/104 H 96 07/15/20 01:05 96 Weight Weight 195 lb General Appearance: NAD, awake alert Eye: PERRL, anicteric sclera ENT: normocephalic atraumatic, no oropharyngeal lesions Neck: supple, no lymphadenopathy Heart: RRR, no murmur, no gallops, no rubs, normal peripheral pulses Respiratory: CTAB, no wheezes, no rales, no ronchi, normal chest expansion Gastrointestinal: soft, non-tender, non-distended, normal bowel sounds Extremities: no edema Skin: normal turgor, no lesions, no rashes Neurological: cranial nerve grossly intact, normal sensation to touch, no weakness Musculoskeletal: normal tone, normal strength, no muscle wasting Psychiatric: normal affect, normal behavior, A&O x 3 Hosp A/P (1) Chest pain Code(s): R07.9 - CHEST PAIN, UNSPECIFIED Status: Acute Plan: Currently pain is mild Indeterminate troponins, will add-on another trop and check d-dimer Continue cardiac monitoring Keep NPO Awaiting cardiology review (2) History of ST elevation myocardial infarction (STEMI) Code(s): I25.2 - OLD MYOCARDIAL INFARCTION Status: Acute Plan: Recent STEMI a month ago On Aspirin/Plavix currently, admits to noncompliance (3) CAD (coronary artery disease) Code(s): I25.10 - ATHSCL HEART DISEASE OF [place] CORONARY ARTERY W/O ANG PCTRS Status: Chronic Plan: As above Home meds restarted (4) HLD (hyperlipidemia) Code(s): E78.5 - HYPERLIPIDEMIA, UNSPECIFIED Status: Chronic Plan: Check lipid panel, fasting Continue statin (5) HTN (hypertension) Code(s): I10 - ESSENTIAL (PRIMARY) HYPERTENSION Status: Chronic (6) Tobacco use disorder Code(s): F17.200 - NICOTINE DEPENDENCE, UNSPECIFIED, UNCOMPLICATED Status: Chronic Plan: Tobacco cessation
[2020-07-15 13:25] LABS: Cardiac Risk 7.7 (Less than 4.5)
--- NOTE | 2020-07-15 15:27 | CON ---
DATE OF CONSULTATION: HISTORY: Mario Alberto Boyer is a 45-year-old white male, initially evaluated in March 2020 when he presented complaining of 5 days of dizziness and lightheadedness. He would even have this turning over in bed and turn his head from [id number]. Overall, I felt that he had acute labyrinthitis. He then presented on June 18 complaining of 45 minutes of chest pain and was found to have inferior STEMI. He stated that pain felt like a pressure all the way across his chest radiating to both arms and much worse than the pain that he is having at the present time. He was taken emergently to the [facility]ing lab[facility] by Dr. Jacob and found to have a totally occluded circumflex. Rebel 2.5 x 24 mm stent was placed. Peak troponin I was 121.608. He was ambulatory the next day and discharged that evening. Over the last week, he states that he has started to have pain in his left arm radiating to his left neck. At times, he will have discomfort in the upper left side of his chest that is definitely pleuritic in nature. The pain would last for hours and hours and at times all day long. He continues to have mild chest discomfort at the present time, which is worse with a deep breath. PAST MEDICAL HISTORY: Questionable myocardial infarction previously 4 or 5 years ago, inferior STEMI in May 2020, hypercholesterolemia, hypertension, smoker. MEDICATIONS: 1. Aspirin 81 daily (states he only takes this every other day and was told he need to take this on a daily basis). 2. Plavix 75 mg daily. 3. Atorvastatin 80 at bedtime. 4. Wellbutrin 75 daily. 5. Zyrtec 10 mg daily. 6. Zetia 10 mg daily. 7. Losartan 100 mg daily. 8. Metoprolol 25 XL daily. 9. Nitroglycerin p.r.n. ALLERGIES: NONE. SOCIAL HISTORY: He smokes 1 to 1-1/2 packs per day but is down to 4 or 5 cigarettes per day. He occasionally drinks. FAMILY HISTORY: Negative for coronary artery disease. REVIEW OF SYSTEMS: A 10-point review of systems is otherwise unremarkable. PHYSICAL EXAMINATION: VITAL SIGNS: Blood pressure 159/102, pulse 89. HEENT: PERRL. NECK: Supple. CHEST: Clear. CARDIAC: S1 and S2 normal without any S3, S4, or murmurs. ABDOMEN: Normal bowel sounds without tenderness or organomegaly. EXTREMITIES: Revealed no clubbing, cyanosis, or edema. NEUROLOGIC: Grossly intact. SKIN: Warm and dry. LABORATORY DATA: EKG revealed normal sinus rhythm with nonspecific T-wave changes. Sodium 140, potassium 4.3, chloride 110, carbon dioxide 22, BUN 16, creatinine 1.11. Troponin I 0.057. BNP 112.8. CBC is unremarkable. COVID is negative. IMPRESSION: 1. Noncardiac chest pain. His current pain does not feel anything like what he had with his myocardial infarction. Also at this time course, approximately 3 weeks after stent placement, either his stent is patent or is clotted. If he did have acute stent thrombosis, he would have very significantly elevated troponin I and changes on his EKG consistent with this first myocardial infarction, which he does not have. Also, his pain is not in the same location and is pleuritic in nature. 2. Status post inferior STEMI with bare metal stent placement in the circumflex approximately 3 weeks ago. 3. Hypercholesterolemia, under poor control, Zetia recently added. 4. Hypertension. 5. Smoker. PLAN: He does have pleuritic chest discomfort and certainly may have some degree of pericardial irritation after his myocardial infarction, although this is somewhat down the line many weeks, which is unusual. I will empirically place him on colchicine and will obtain an echocardiogram. We will continue to follow the patient with you. Another EKG will be obtained. Job ID: [id number] MTDD
[2020-07-15 16:33] LABS: CKMB 1.4 ng/mL (0-6.6)
[2020-07-15] MEDS: Colchicine 0.6 MG TAB PO SCH (20:37)
[2020-07-16 05:42] LABS: #Basophils 0.1 thou/uL (0.0-0.2); #Eosinphils 0.3 thou/uL (0.0-0.7); #Lymphocytes 4.2 thou/uL (1.20-3.40); #Monocytes 0.9 thou/uL (0.11-0.59); #Neutrophils 4.4 thou/uL (1.40-6.50); %Basophils 0.9 % (0.0-1.0); %Eosinophils 3.1 % (0.0-10.0); %Lymphocytes 42.3 % (21.0-51.0); %Monocytes 8.9 % (0.0-10.0); %Neutrophils 44.8 % (42.0-75.0); Mean Corpuscular HGB CONC 34.1 g/dL (32.0-36.0); Mean Corpuscular Hemoglobin 31.3 pg (27.0-31.0); Mean Corpuscular Volume 91.7 fL (78.0-98.0); Mean Platelet Volume 7.5 fL (7.4-10.4); Platelet Count 192 thou/uL (130-400); RBC Distribution Width 11.8 % (11.5-14.5); Red Blood Cell (RBC) Count 5.12 mill/uL (4.70-6.10); White Blood Cell (WBC) Count 9.9 thou/uL (4.8-10.8)
[2020-07-16 05:59] LABS: ALT (SGPT) 37 U/L (8-55); AST (SGOT) 20 U/L (5-34); Albumin 3.7 g/dL (3.5-5.0); Alkaline Phosphatase 66 U/L (40-110); Anion Gap 12 mmol/L (10-20); BUN (Urea Nitrogen) 12 mg/dL (8.9-20.6); Bilirubin, Total 0.3 mg/dL (0.2-1.2); Calc. Creatinine Clearance 107 mL/min (70-130); Calcium 8.8 mg/dL (7.8-10.44); Carbon Dioxide 22 mmol/L (22-29); Chloride 107 mmol/L (98-107); Globulin 2.9 g/dL (2.4-3.5); Glucose 91 mg/dL (70-105); Potassium 4.2 mmol/L (3.5-5.1); Protein, Total 6.6 g/dL (6.0-8.3); Sodium 137 mmol/L (136-145)
[2020-07-16] MEDS: Nitroglycerin 2% Ointment 1 INCH/1 GM Packet TOP SCH (06:18)
[2020-07-16] MEDS: Aspirin Chewable 81 MG TAB PO SCH (09:52)
[2020-07-16] MEDS: Colchicine 0.6 MG TAB PO SCH (09:52)
[2020-07-16] MEDS: Clopidogrel Bisulfate 75 MG TAB PO SCH (09:52)
[2020-07-16] MEDS: Atorvastatin Calcium 40 MG TAB PO SCH (09:53)
[2020-07-16 11:30] VITALS: BP 124/79; TEMP 98.2
--- NOTE | 2020-07-16 22:12 | EKG ---
Test Reason : Blood Pressure : / mmHG Vent. Rate : 075 BPM Atrial Rate : 075 BPM P-R Int : 138 ms QRS Dur : 092 ms QT Int : 386 ms P-R-T Axes : 046 048 031 degrees QTc Int : 431 ms Normal sinus rhythm Nonspecific T wave abnormality Abnormal ECG When compared with ECG of 14-JUL-2020 21:25, (Unconfirmed) No significant change was found Confirmed by Tena CALZADA ([id number]) on 07/16/2020 10:11:51 PM Referred By: MARLA Confirmed By:Tena CALZADA
== END 2020-07-16 14:34 | disposition home or self-care (01) ==
LOC: ERS 21:19 → ERHOLD 23:46 → 3SE 07-15 02:38
PROVIDERS: ADMIT Internal Medicine; ATTEND Internal Medicine
DX: R07.89 Other chest pain (principal); I25.10 Atherosclerotic heart disease of native coronary artery without angina pectoris; I25.2 Old myocardial infarction; I10 Essential (primary) hypertension; E78.5 Hyperlipidemia, unspecified; F17.210 Nicotine dependence, cigarettes, uncomplicated; E78.00 Pure hypercholesterolemia, unspecified; Z91.14 Patient's other noncompliance with medication regimen; Z79.02 Long term (current) use of antithrombotics/antiplatelets; Z79.82 Long term (current) use of aspirin; Z79.899 Other long term (current) drug therapy; Z95.5 Presence of coronary angioplasty implant and graft; Z20.822 Contact with and (suspected) exposure to COVID-19
CPT/HCPCS: 36415; 71046; 80048; 80053; 80061; 82553; 83690; 83735; 83880; 84484; 85025; 85379; 87635; 93005; 93010; 93306; 94760; G0378; U0003; U0005

== ENCOUNTER 2022-04-20 22:52 | Emergency (ER) | payer SELFPAY ==
[2022-04-20] MEDS ORDERED: HYDROcodone/Acetaminophen 5/325 mg Tablet ONE (23:37)
[2022-04-20] MEDS ORDERED: Boostrix 0.5 ML (Tdap) VIAL (>/=7 yrs of age) ONE (23:38)
== END 2022-04-20 23:53 | disposition home or self-care (01) ==
LOC: ERS 22:52
DX: S61.211A Laceration without foreign body of left index finger without damage to nail, initial encounter (principal); K02.9 Dental caries, unspecified; Z23 Encounter for immunization; I10 Essential (primary) hypertension; E78.00 Pure hypercholesterolemia, unspecified; F17.210 Nicotine dependence, cigarettes, uncomplicated; W25.XXXA Contact with sharp glass, initial encounter
CPT/HCPCS: 12001; 90471; 90715

== ENCOUNTER 2023-10-19 11:52 | Emergency (ER) | payer BC ==
[2023-10-19 12:24] LABS: %Lymphocytes 40.2 % (21.0-51.0); %Monocytes 9.5 % (0.0-10.0); %Neutrophils 44.9 % (42.0-75.0); Hematocrit 48.7 % (42.0-52.0); Hemoglobin 17.4 g/dL (14.0-18.0); Mean Corpuscular HGB CONC 35.7 g/dL (32.0-36.0); Mean Corpuscular Hemoglobin 31.2 pg (27.0-31.0); Mean Corpuscular Volume 87.4 fL (78.0-98.0); Mean Platelet Volume 9.3 fL (7.4-10.4); Platelet Count 215 10x3/uL (130-400); RBC Distribution Width 11.9 % (11.5-14.5); Red Blood Cell (RBC) Count 5.57 mill/uL (4.70-6.10)
[2023-10-19 12:56] LABS: ALT (SGPT) 24 U/L (8-55); AST (SGOT) 17 U/L (5-34); Alkaline Phosphatase 77 U/L (40-110); Anion Gap 13 mmol/L (10-20); BUN (Urea Nitrogen) 14 mg/dL (8.9-20.6); Bilirubin, Total 0.6 mg/dL (0.2-1.2); Calc. Creatinine Clearance 0 mL/min (70-130); Calcium 9.5 mg/dL (7.8-10.44); Carbon Dioxide 22 mmol/L (22-29); Chloride 109 mmol/L (98-107); Estimated GFR 82; Globulin 3.4 g/dL (2.4-3.5); Glucose 89 mg/dL (70-105); Potassium 4.3 mmol/L (3.5-5.1); Protein, Total 7.4 g/dL (6.0-8.3); Sodium 140 mmol/L (136-145)
[2023-10-19 13:57] LABS: Troponin I Less than 0.010 ng/mL (< 0.028)
== END 2023-10-19 15:59 | disposition home or self-care (01) ==
LOC: ERS 11:52
DX: R42 Dizziness and giddiness (principal); R29.700 NIHSS score 0; I10 Essential (primary) hypertension; I25.2 Old myocardial infarction; F17.210 Nicotine dependence, cigarettes, uncomplicated
CPT/HCPCS: 36415; 71045; 80053; 84484; 85025; 93005

== ENCOUNTER 2025-01-10 19:09 | Emergency (ER) | payer BC, SELFPAY ==
[2025-01-10] MEDS ORDERED: Orphenadrine Citrate 60 MG/2 ML VIAL ONE (21:05)
[2025-01-10] MEDS ORDERED: HYDROcodone/Acetaminophen 5/325 mg Tablet ONE (21:05)
== END 2025-01-10 23:08 | disposition home or self-care (01) ==
LOC: ERS 19:09
DX: M48.061 Spinal stenosis, lumbar region without neurogenic claudication (principal); I10 Essential (primary) hypertension; I25.2 Old myocardial infarction; E11.9 Type 2 diabetes mellitus without complications; F17.290 Nicotine dependence, other tobacco product, uncomplicated; Z86.73 Personal history of transient ischemic attack (TIA), and cerebral infarction without residual deficits
CPT/HCPCS: 72131; 96372; J2360; J2919

== ENCOUNTER 2025-01-18 12:42 | Outpatient (CLI) | payer BC | END 2025-01-18 12:43 | disposition home or self-care (01) | LOC: SCSMRI 12:42 | PROVIDERS: ATTEND Family Medicine | DX: S39.92XD Unspecified injury of lower back, subsequent encounter (principal); M62.81 Muscle weakness (generalized); R93.7 Abnormal findings on diagnostic imaging of other parts of musculoskeletal system; M47.26 Other spondylosis with radiculopathy, lumbar region; M51.16 Intervertebral disc disorders with radiculopathy, lumbar region | CPT/HCPCS: 72148 ==